=== PATIENT | female | born 1935 | race Caucasian/White ===

== ENCOUNTER 2020-11-06 13:53 | Inpatient (IN) ==
[2020-11-06] MEDS ORDERED: LABETALOL 20 MG/4 ML SYRINGE IV PRN (15:42)
[2020-11-06] MEDS ORDERED: DEXTROSE 50% 25 GM/50 ML VIAL IV PRN (15:48)
[2020-11-06] MEDS ORDERED: GLUCAGON 1 MG VIAL IM PRN (15:48)
[2020-11-06 17:53] LABS: Basophils % 0.5 % (0.0-0.8); Eosinophils # 0.4 10*3/uL (0.0-0.87); Eosinophils % 4.5 % (0.00-10.9); Hemoglobin 9.1 GM/DL (12.0-16.0); Immature Granulocytes % 0.2 %; Immature Granulocytes Absolute 0.02 #; Lymphocytes % 11.7 % (21.3-54.2); Mean Corpuscular HGB Conc 31.4 GM/DL (32-36); Mean Corpuscular Volume 89.2 FL (87-102); Mean Platelet Volume 10.9 FL (9.6-12.0); Monocytes % 6.6 % (1.7-12.7); Neutrophils % 76.5 % (38.7-73.9); Platelet Count 169 T/CUMM (130-400); Red Blood Count 3.25 MC/CUMM (3.8-5.5); Red Cell Distribution Width 13.8 % (9.3-17.3); White Blood Count 8.7 T/CUMM (4-12)
[2020-11-06] MEDS: ASPIRIN 325 MG TABLET PO SCH (18:09)
[2020-11-06] MEDS: CLOPIDOGREL 75 MG TABLET PO SCH (18:10)
[2020-11-06] MEDS: INSULIN LISPRO 100 UNIT/ML SUBCUT SCH (18:10)
[2020-11-06] MEDS: SODIUM CHLORIDE 0.9% 1,000 ML IV SCH (18:10)
[2020-11-06 18:16] LABS: INR 1.1; PT Patient Result 11.4 SECS (9.8-11.9); Partial Thromboplastin Time 28.5 SECS (23.9-33.8)
[2020-11-06 18:17] LABS: Risk Ratio 2.38; VLDL CHOLESTEROL 24.4 MG/DL
[2020-11-06 18:18] LABS: Albumin 3.1 G/DL (3.4-5.0); Bilirubin,Total 0.5 MG/DL (0.2-1.0); Calcium 8.9 MG/DL (8.5-10.1); Osmolality,Calculated 284.3 MOS/KG (273-304); Potassium 3.7 MMOL/L (3.5-5.1); Total Protein 6.5 G/DL (6.4-8.3)
[2020-11-06 18:57] LABS: Sedimentation Rate-Westergren 35 MM/HR (0-30)
[2020-11-06] MEDS: ATORVASTATIN 40 MG TABLET PO SCH (21:00)
[2020-11-06] MEDS: ENOXAPARIN 30 MG/0.3 ML SYRINGE SUBCUT SCH (21:00)
[2020-11-06] MEDS ORDERED: ZIPRASIDONE 20 MG/1 ML VIAL IM ONE (22:47)
[2020-11-07] MEDS: INSULIN LISPRO 100 UNIT/ML SUBCUT SCH ×4 (02:58→17:01)
[2020-11-07] MEDS: SODIUM CHLORIDE 0.9% 1,000 ML IV SCH (06:29)
[2020-11-07 06:39] LABS: Osmolality,Calculated 284.1 MOS/KG (273-304); Potassium 3.9 MMOL/L (3.5-5.1)
[2020-11-07] MEDS ORDERED: GLUCAGON 1 MG VIAL IM PRN (08:48)
[2020-11-07] MEDS ORDERED: DEXTROSE 50% 25 GM/50 ML VIAL IV PRN (08:48)
[2020-11-07] MEDS: PANTOPRAZOLE 40 MG TABLET PO SCH (09:00)
[2020-11-07] MEDS: ASPIRIN 325 MG TABLET PO SCH (09:01)
[2020-11-07] MEDS: CLOPIDOGREL 75 MG TABLET PO SCH (09:01)
[2020-11-07] MEDS: SODIUM CHLORIDE 0.45% 1,000 ML IV SCH (13:44)
[2020-11-07] MEDS ORDERED: QUEtiapine 25 MG TABLET PO SCH (21:00)
[2020-11-07] MEDS: ENOXAPARIN 30 MG/0.3 ML SYRINGE SUBCUT SCH (21:13)
[2020-11-07] MEDS: ATORVASTATIN 40 MG TABLET PO SCH (21:13)
[2020-11-07] MEDS ORDERED: ZIPRASIDONE 20 MG/1 ML VIAL IM PRN (22:49)
[2020-11-08] MEDS: ACETAMINOPHEN 325 MG TABLET PO PRN (01:01)
[2020-11-08] MEDS: INSULIN LISPRO 100 UNIT/ML SUBCUT SCH ×4 (04:39→18:15)
[2020-11-08 06:00] LABS: Basophils % 0.4 % (0.0-0.8); Eosinophils # 0.4 10*3/uL (0.0-0.87); Eosinophils % 5.1 % (0.00-10.9); Hematocrit 29.2 VOL% (35.7-47.0); Immature Granulocytes % 0.4 %; Immature Granulocytes Absolute 0.03 #; Lymphocytes # 1.4 10*3/uL (1.4-4.0); Lymphocytes % 16.8 % (21.3-54.2); Mean Corpuscular HGB Conc 30.8 GM/DL (32-36); Mean Corpuscular Volume 90.7 FL (87-102); Mean Platelet Volume 11.1 FL (9.6-12.0); Monocytes % 10.9 % (1.7-12.7); Neutrophils % 66.4 % (38.7-73.9); Platelet Count 174 T/CUMM (130-400); Red Blood Count 3.22 MC/CUMM (3.8-5.5); Red Cell Distribution Width 13.6 % (9.3-17.3); White Blood Count 8.1 T/CUMM (4-12)
[2020-11-08 06:26] LABS: Calcium 9.2 MG/DL (8.5-10.1); Osmolality,Calculated 285.4 MOS/KG (273-304); Potassium 3.6 MMOL/L (3.5-5.1)
[2020-11-08] MEDS: CLOPIDOGREL 75 MG TABLET PO SCH (09:51)
[2020-11-08] MEDS: PANTOPRAZOLE 40 MG TABLET PO SCH (09:51)
[2020-11-08] MEDS: ASPIRIN 325 MG TABLET PO SCH (09:51)
[2020-11-08] MEDS: SODIUM CHLORIDE 0.45% 1,000 ML IV SCH (14:32)
[2020-11-08] MEDS: QUEtiapine 25 MG TABLET PO SCH (20:19)
[2020-11-08] MEDS: rOPINIRole 1 MG TABLET PO SCH (20:19)
[2020-11-08] MEDS: ATORVASTATIN 40 MG TABLET PO SCH (20:19)
[2020-11-08] MEDS: ENOXAPARIN 30 MG/0.3 ML SYRINGE SUBCUT SCH (20:22)
[2020-11-09] MEDS: INSULIN LISPRO 100 UNIT/ML SUBCUT SCH ×4 (01:08→18:11)
[2020-11-09 04:31] LABS: Basophils % 0.4 % (0.0-0.8); Eosinophils # 0.3 10*3/uL (0.0-0.87); Hematocrit 27.4 VOL% (35.7-47.0); Hemoglobin 8.6 GM/DL (12.0-16.0); Immature Granulocytes % 0.1 %; Immature Granulocytes Absolute 0.01 #; Lymphocytes # 0.9 10*3/uL (1.4-4.0); Lymphocytes % 12.9 % (21.3-54.2); Mean Corpuscular HGB Conc 31.4 GM/DL (32-36); Mean Platelet Volume 10.9 FL (9.6-12.0); Monocytes % 8.8 % (1.7-12.7); Neutrophils % 73.8 % (38.7-73.9); Platelet Count 166 T/CUMM (130-400); Red Blood Count 3.08 MC/CUMM (3.8-5.5); White Blood Count 7.1 T/CUMM (4-12)
[2020-11-09 04:55] LABS: Calcium 8.8 MG/DL (8.5-10.1); Osmolality,Calculated 282.7 MOS/KG (273-304); Potassium 3.8 MMOL/L (3.5-5.1)
[2020-11-09] MEDS: ASPIRIN 325 MG TABLET PO SCH (08:24)
[2020-11-09] MEDS: PANTOPRAZOLE 40 MG TABLET PO SCH (08:24)
[2020-11-09] MEDS: CLOPIDOGREL 75 MG TABLET PO SCH (08:24)
[2020-11-09] MEDS: MORPHINE 4 MG/1 ML VIAL IV PRN (08:26)
[2020-11-09] MEDS: SODIUM CHLORIDE 0.45% 1,000 ML IV SCH (10:23)
[2020-11-09] MEDS: ACETAMINOPHEN 325 MG TABLET PO PRN (17:50)
[2020-11-09] MEDS: rOPINIRole 1 MG TABLET PO SCH (20:05)
[2020-11-09] MEDS: QUEtiapine 25 MG TABLET PO SCH (20:05)
[2020-11-09] MEDS: ATORVASTATIN 40 MG TABLET PO SCH (20:05)
[2020-11-09] MEDS: ENOXAPARIN 30 MG/0.3 ML SYRINGE SUBCUT SCH (20:09)
[2020-11-10] MEDS: SODIUM CHLORIDE 0.45% 1,000 ML IV SCH ×2 (00:29→15:52)
[2020-11-10] MEDS: DOCUSATE SODIUM 100 MG CAPSULE PO SCH ×3 (05:08→20:05)
[2020-11-10] MEDS: INSULIN LISPRO 100 UNIT/ML SUBCUT SCH ×4 (05:16→18:17)
[2020-11-10 06:26] LABS: Basophils % 0.3 % (0.0-0.8); Eosinophils # 0.2 10*3/uL (0.0-0.87); Eosinophils % 2.8 % (0.00-10.9); Hematocrit 27.6 VOL% (35.7-47.0); Hemoglobin 8.5 GM/DL (12.0-16.0); Immature Granulocytes % 0.6 %; Immature Granulocytes Absolute 0.04 #; Lymphocytes # 0.6 10*3/uL (1.4-4.0); Lymphocytes % 9.8 % (21.3-54.2); Mean Corpuscular HGB Conc 30.8 GM/DL (32-36); Mean Corpuscular Volume 90.2 FL (87-102); Mean Platelet Volume 11.1 FL (9.6-12.0); Monocytes % 10.1 % (1.7-12.7); Neutrophils % 76.4 % (38.7-73.9); Platelet Count 172 T/CUMM (130-400); Red Blood Count 3.06 MC/CUMM (3.8-5.5); Red Cell Distribution Width 13.5 % (9.3-17.3); White Blood Count 6.4 T/CUMM (4-12)
[2020-11-10 06:44] LABS: Calcium 8.3 MG/DL (8.5-10.1); Osmolality,Calculated 275.1 MOS/KG (273-304); Potassium 4.1 MMOL/L (3.5-5.1)
[2020-11-10] MEDS: ASPIRIN 325 MG TABLET PO SCH (08:44)
[2020-11-10] MEDS: PANTOPRAZOLE 40 MG TABLET PO SCH (08:45)
[2020-11-10] MEDS: CLOPIDOGREL 75 MG TABLET PO SCH (08:45)
[2020-11-10] MEDS: ACETAMINOPHEN 325 MG TABLET PO PRN (08:45)
[2020-11-10] MEDS: MORPHINE 4 MG/1 ML VIAL IV PRN (10:38)
[2020-11-10] MEDS: ATORVASTATIN 40 MG TABLET PO SCH (20:04)
[2020-11-10] MEDS: QUEtiapine 25 MG TABLET PO SCH (20:05)
[2020-11-10] MEDS: rOPINIRole 1 MG TABLET PO SCH (20:06)
[2020-11-10] MEDS: ENOXAPARIN 30 MG/0.3 ML SYRINGE SUBCUT SCH (20:12)
[2020-11-10 22:35] LABS: Bacteria,Urine Many /HPF (Few); Bilirubin,Urine Negative (Negative); Blood, Urine Moderate mg/dL (Negative); Glucose,Urine (UA) Negative (Negative); Ketones,Urine Negative (Negative); Nitrite,Urine Positive (Negative); Protein,Urine 30 MG/DL; RBC,Urine 18 /HPF (0-4); Squamous Epithelial Cell,Urine Occasional /HPF (0-10); Urine Appearance CLOUDY (Clear); Urine Color Yellow (Yellow); Urine Specific Gravity 1.008 (1.001-1.035); Urine Urobilinogen < 2.0 EU/DL (0.2-1.0); WBC,Urine 116 /HPF (0-6)
[2020-11-10] MEDS ORDERED: cefTRIAXone 1,000 MG in SYRINGE 1 EACH IV SCH (23:30)
[2020-11-11] MEDS: INSULIN LISPRO 100 UNIT/ML SUBCUT SCH ×3 (00:16→13:41)
[2020-11-11] MEDS: ACETAMINOPHEN 325 MG TABLET PO PRN (04:26)
[2020-11-11] MEDS: SODIUM CHLORIDE 0.45% 1,000 ML IV SCH (04:45)
[2020-11-11 06:26] LABS: Basophils % 0.6 % (0.0-0.8); Eosinophils # 0.4 10*3/uL (0.0-0.87); Hematocrit 25.5 VOL% (35.7-47.0); Hemoglobin 8.2 GM/DL (12.0-16.0); Immature Granulocytes % 0.6 %; Immature Granulocytes Absolute 0.03 #; Lymphocytes # 0.8 10*3/uL (1.4-4.0); Lymphocytes % 14.2 % (21.3-54.2); Mean Corpuscular HGB Conc 32.2 GM/DL (32-36); Mean Platelet Volume 10.9 FL (9.6-12.0); Neutrophils % 63.6 % (38.7-73.9); Platelet Count 154 T/CUMM (130-400); Red Blood Count 2.93 MC/CUMM (3.8-5.5); Red Cell Distribution Width 13.4 % (9.3-17.3); White Blood Count 5.4 T/CUMM (4-12)
[2020-11-11 07:00] LABS: Potassium 4.2 MMOL/L (3.5-5.1)
[2020-11-11] MEDS: DOCUSATE SODIUM 100 MG CAPSULE PO SCH (08:58)
[2020-11-11] MEDS: PANTOPRAZOLE 40 MG TABLET PO SCH (08:58)
[2020-11-11] MEDS: CLOPIDOGREL 75 MG TABLET PO SCH (08:59)
[2020-11-11] MEDS: ASPIRIN 325 MG TABLET PO SCH (08:59)
[2020-11-11] MEDS ORDERED: MAGNESIUM HYDROXIDE SUSP 30 ML UDCUP PO ONE (15:27)
[2020-11-11 16:23] VITALS: BP 134/59
== END 2020-11-11 16:33 | DRG 65 ==
LOC: N.ED 13:53 → N.TELEN 16:02 → SUATTDRO 16:02 → N.TELEN 16:35
PROVIDERS: ADMIT Internal Medicine; ATTEND Internal Medicine